=== PATIENT | female | born 1975 | race Caucasian/White ===

== ENCOUNTER → 2017-05-13 | Outpatient (CLI) | payer BC ==
--- NOTE | 2017-05-13 11:56 | MM ---
Reason for exam: screening (asymptomatic). Baseline mammogram. History: Family history of breast cancer in maternal grandmother at age 60, breast cancer in maternal aunt at age 40, and breast cancer in maternal aunt at age 50. Took hormonal contraceptives beginning at age 19. Physical Findings: Nurse did not find any significant physical abnormalities on exam. MG Screening Mammo w CAD Bilateral CC and MLO view(s) were taken. There are scattered fibroglandular densities. Nodular density lower right breast 6-7cm from nipple. These results were verbally communicated with the patient and result sheet given to the patient on 05/13/17. ASSESSMENT: Incomplete: need additional imaging evaluation, BI-RAD 0 RECOMMENDATION: Ultrasound of the right breast. [facility] will attempt to contact patient to return for ultrasound.
--- NOTE | 2017-05-13 11:57 | USB ---
Reason for exam: additional evaluation requested from abnormal screening. History: Family history of breast cancer in maternal grandmother at age 60, breast cancer in maternal aunt at age 40, and breast cancer in maternal aunt at age 50. Took hormonal contraceptives beginning at age 19. Physical Findings: Breast exam preformed at baseline screening. US Breast Workup Limited RT Right breast ultrasound demonstrates a 0.4 x 0.4 x 0.3cm oval, cystic lesion at 6 o'clock and a 0.8 x 0.5 x 0.8cm vascular lymph node at 7 o'clock. These results were verbally communicated with the patient and result sheet given to the patient on 05/13/17. ASSESSMENT: Benign, BI-RAD 2 RECOMMENDATION: Return to routine screening mammogram schedule for both breasts.
== END | disposition home or self-care (01) ==
LOC: RADMAMWWP 10:16
PROVIDERS: ATTEND Family Medicine
DX: Z12.31 Encounter for screening mammogram for malignant neoplasm of breast (principal); R92.8 Other abnormal and inconclusive findings on diagnostic imaging of breast; Z80.3 Family history of malignant neoplasm of breast
CPT/HCPCS: 77067

== ENCOUNTER → 2019-03-04 | Outpatient (CLI) | payer BC ==
--- NOTE | 2019-03-04 17:27 | XR ---
EXAMINATION TYPE: XR chest 2V DATE OF EXAM: 03/04/2019 COMPARISON: NONE HISTORY: Short of breath TECHNIQUE: 2 views FINDINGS: There is coarsening of the lung markings. There is no heart failure nor confluent pneumonic infiltrate. Costophrenic angles are clear. Bony thorax is intact. IMPRESSION: No heart failure or pulmonary consolidation. Minimal fibrotic changes.
== END | disposition home or self-care (01) ==
LOC: RADXRMAIN 16:46
PROVIDERS: ATTEND Nurse Practitioner Family
DX: J84.10 Pulmonary fibrosis, unspecified (principal); R06.00 Dyspnea, unspecified
CPT/HCPCS: 71046

== ENCOUNTER → 2019-04-01 | Outpatient (CLI) | payer BC ==
--- NOTE | 2019-04-01 17:39 | CT ---
EXAMINATION TYPE: CT chest w con DATE OF EXAM: 04/01/2019 COMPARISON: Chest x-ray 03/04/2019 HISTORY: abnormal cxr CT DLP: 677.8 mGycm, Automated exposure control for dose reduction was used. CONTRAST: Performed injected with 100 mL of Isovue 300. TECHNIQUE: Axial images were obtained at 5 mm thick sections. Reconstructed images are reviewed on [employer] computer in the coronal plane. FINDINGS: Portion of the thyroid visualized is normal. No suspicious lung nodules or focal infiltrates are present. No enlarged mediastinal or hilar adenopathy is evident. The ascending aorta diameter at the level o f the main pulmonary artery is 4.0 cm. The main pulmonary artery diameter at the bifurcation is 3.[address] sections are obtained through the upper abdomen. Abdomen is essentially unremarkable. IMPRESSIONS: 1. Aneurysmal dilatation of ascending thoracic aorta measuring 4.0 cm.
== END | disposition home or self-care (01) ==
LOC: RADCTMAIN 09:09
PROVIDERS: ATTEND Family Medicine
DX: I71.2 Thoracic aortic aneurysm, without rupture (principal)
CPT/HCPCS: 71260; Q9967

== ENCOUNTER → 2019-04-12 | Outpatient (CLI) | payer BC | END | disposition home or self-care (01) | LOC: CPPFTMAIN 13:52 | PROVIDERS: ATTEND Family Medicine | DX: J44.9 Chronic obstructive pulmonary disease, unspecified (principal) | CPT/HCPCS: 94060; 94726; 94729 ==

== ENCOUNTER → 2020-04-09 | Outpatient (CLI) | payer BC ==
--- NOTE | 2020-04-09 11:16 | CT ---
EXAMINATION TYPE: CT angio chest DATE OF EXAM: 04/09/2020 COMPARISON: 04/01/2019 HISTORY: Thoracic aortic aneurysm CT DLP: 1294.0 mGycm CONTRAST: CTA thoracic aorta with 3-D reconstruction is performed and with IV Contrast, patient injected with 1 00 mL of Isovue 370. Contrast CTA of the thoracic aorta was performed from the lung apex through the upper abdomen. 3D re construction imaging obtained at a separate workstation. CT Chest: THORACIC AORTA: The ascending thoracic aorta is stable at 4 cm AP dimension. Mild atheromatous change s seen. There is no evidence for dissection or periaortic collection. LUNGS: The lungs are clear and free of infiltrate or atelectasis. No pulmonary nodule or mass is det ected. No pleural effusion or CT evidence of interstitial lung disease. MEDIASTINUM: No evidence for mediastinal hematoma. The heart is not enlarged. No evidence for med iastinal mass or adenopathy. HILAR STRUCTURES: No evidence for mass. No hilar adenopathy is appreciated. OTHER: No significant abnormality. IMPRESSION- The ascending thoracic aorta is stable at 4 cm AP dimension.
== END | disposition home or self-care (01) ==
LOC: RADCTMAIN 08:11
PROVIDERS: ATTEND Thoracic Surgery (Cardiothoracic Vascular Surgery)
DX: I71.2 Thoracic aortic aneurysm, without rupture (principal)
CPT/HCPCS: 71275; Q9967

== ENCOUNTER → 2020-04-09 | Outpatient (CLI) | payer BC ==
--- NOTE | 2020-04-09 10:23 | ECHOF ---
Referral Reason:R01.1 Cardiac murmur, unspecified MEASUREMENTS -------- HEIGHT: 180.3 cm WEIGHT: 154.2 kg BP: RVIDd: 2.9 cm (< 3.3) IVSd: 1.2 cm (0.6 - 1.1) LVIDd: 5.7 cm (3.9 - 5.3) LVPWd: 1.2 cm (0.6 - 1.1) IVSs: 1.5 cm LVIDs: 2.9 cm LVPWs: 2.1 cm LAESV Index (A-L): 28.62 ml/m Ao Diam: 2.7 cm (2.0 - 3.7) AV Cusp: 1.8 cm (1.5 - 2.6) LA Diam: 3.8 cm (2.7 - 3.8) MV EXCURSION: 15.568 mm (> 18.000) MV EF SLOPE: 111 mm/s (70 - 150) EPSS: 0.2 cm MV E Alexys: 0.92 m/s MV DecT: 172 ms MV A Alexys: 0.61 m/s MV E/A Ratio: 1.51 RAP: 5.00 mmHg RVSP: 27.35 mmHg FINDINGS -------- Sinus rhythm. This was a technically adequate study. The left ventricular size is normal. There is mild concentric left ventricular hypertrophy. Overa ll left ventricular systolic function is normal with, an EF between 55 - 60 %. The diastolic fillin g pattern is normal for the age of the patient 10.61. The right ventricle is normal in size. Normal LA size by volume 22+/-6 ml/m2. The right atrial size is normal. IAS not well Visualized. The aortic valve is trileaflet, and appears structurally normal. No aortic stenosis or regurgitation. The mitral valve is normal. Mild mitral regurgitation is present. The tricuspid valve appears structurally normal. Mild tricuspid regurgitation present. Right vent ricular systolic pressure is normal at < 35 mmHg. There is no pulmonic regurgitation present. The aortic root size is normal. Normal inferior vena cava with normal inspiratory collapse consistent with estimated right atrial pre ssure of 5 mmHg. There is no pericardial effusion. CONCLUSIONS -------- 1. There is mild concentric left ventricular hypertrophy. 2. Overall left ventricular systolic function is normal with, an EF between 55 - 60 %. 3. The aortic valve is trileaflet, and appears structurally normal. No aortic stenosis or regurgitati on. 4. Mild mitral regurgitation is present. 5. Mild tricuspid regurgitation present. 6. There is no pericardial effusion. WEAVING TEACHER: Karlie Abdul RDCS
== END | disposition home or self-care (01) ==
LOC: RADECHMAIN 08:10
PROVIDERS: ATTEND Family Medicine
DX: R01.1 Cardiac murmur, unspecified (principal)
CPT/HCPCS: 93306

== ENCOUNTER → 2021-12-18 | Outpatient (CLI) | payer BC ==
--- NOTE | 2021-12-18 16:59 | P.SLEEP ---
History of Present Illness DATE: 12/18/2021 CONSULTATION/NEW PATIENT EVALUATION HISTORY OF PRESENT ILLNESS/SLEEP-WAKE EVALUATION: 46 year old lady had been evaluated in the sleep center for possible obstructive sleep apnea hypopnea syndrome. Patient has history of oxygen desaturation during the night documented by oximetry and tired during the day during exercise, she is on oxygen supplement 2 L/m 24 hours a day. SLEEP SCHEDULE: Usually sleep schedule on weekdays from 10 PM to 6 AM, during days off from 10-11 PM to 8 AM. FALLING ASLEEP: Usually no significant problems with the falling asleep, although patient has TV set and bedroom. DURING SLEEP: Patient snores and wakes up from sleep up to 4 times with 3 episodes of nocturia. Positive history of hypnogogical hallucinations, but no sleep paralysis, or cataplexy. Positive history of palpitation, sweating during the night and episodes of pounding headaches in the morning DURING THE DAY/WAKE STATE: Patient wakes up tired, sometimes with pounding headache, falling asleep during the day, has problems with memory, concentration, irritability. [place] Sleepiness Scale is in very high range of 17. Patient may take 1 nap around 4 PM. PAST MEDICAL HISTORY: Asthma, hypertension, depression, ALLERGY, acid reflux in the past, sinuses problems. PAST SURGICAL HISTORY: None. MEDICATIONS: Sertraline 100 mg once a day, losartan/hydrochlorothiazide 100 mg/12.5 mg once a day, Sondra, Flonase, Trilogy. SOCIAL HISTORY: Positive for smoking for about 25 years, quit 7 years ago, alcohol consumption occasional. FAMILY HISTORY: Heart problems, hyperlipidemia, cancer, diabetes mellitus. REVIEW OF SYSTEMS: Snoring, multiple awakenings from sleep, significant excessive daytime sleepiness. No fevers. No double vision. No recent chest pain. No shortness of breath. No abdominal pain. No bleeding episodes. No blood in urine. No seizure episodes. PHYSICAL EXAMINATION: GENERAL: A pleasant patient without any distress. VITAL SIGNS: BP 148/78 , HR 92 , RR 16 , weight 370.8 pounds, height 6 foot 0 inches, body mass index 50.1 . HEENT: PERRLA, EOMI. Evaluation of oropharynx showed tongue protrudes midline, wide pillars. NECK: Supple. No JVD. Thyroid is not palpable. 19-1/2 inches in circumference. LUNGS: Clear to percussion and to auscultation. Good air exchange. No wheezing or rhonchi. HEART: S1, S2 regular. No murmurs, gallops or rubs. ABDOMEN: Soft and nontender. Bowel sounds are present. No organomegaly appreciated. EXTREMITIES: No clubbing or cyanosis. CLIENT OPERATIONS MANAGER: Awake, alert, and oriented x3. Cranial nerves 2 to 7 intact. There is no fasciculation or atrophy noted. No focal deficits observed. ASSESSMENT: 1. Snoring, multiple awakenings from sleep, small oropharyngeal air space, extremely wide neck 19-1/2 inches in circumference, history of oxygen desaturation during the sleep confirmed by oximetry. Obstructive sleep apnea- hypopnea syndrome. 2. Sleepiness with way high [place] Sleepiness Scale of 17 dictate necessity to include narcolepsy and hypersomnia and differential diagnosis. 3 obesity body mass index 50.1. Patient increased to wait on 120 pounds for last 10 years. 4. Asthma. 5 hypertension. 6. Headaches pounding, sometimes starting in the morning after awakenings. 7. Depression. 8. ALLERGY. 9. Sinuses problems. 10. History of smoking for 25 pack years. Quit 7 years ago. PLAN: 1. Polysomnography for evaluation of patient's breathing during sleep. 2. CPAP/BiPAP titration if sleep study confirms obstructive sleep apnea-hy popnea syndrome. 3. Preferable position during sleep on the side. 4. No driving if patient feels any sleepiness. Patient is aware of civil and criminal liability for unsafe driving. 5. Sleep hygiene with regular sleep time for at least 7.5-8 hours. 6. Watching and losing weight. Thank you very much for referring this patient for consultation. Sincerely, Dipak Lamb MD, PhD, FAASM. Diplomat of [place] [employer], Sleep Medicine Board by [place] [employer] [place] [employer] Officer of [facility] [place] Medications and Allergies Allergies Allergy/AdvReac Type Severity Reaction Status Date / Time No Known Allergies Allergy Verified 05/13/17 10:53 Sleep Note - Sleep Note Sleep Note: Temperature: Pulse Rate: Respiratory Rate: Blood Pressure: SpO2: Height: Weight: BMI: Neck Circumference:
== END ==
LOC: SLEEP 15:47
PROVIDERS: ATTEND Internal Medicine
DX: G47.33 Obstructive sleep apnea (adult) (pediatric) (principal); E66.9 Obesity, unspecified; Z68.43 Body mass index [BMI] 50.0-59.9, adult; J45.909 Unspecified asthma, uncomplicated; I10 Essential (primary) hypertension; R51.9 Headache, unspecified; F32.A Depression, unspecified; Z87.891 Personal history of nicotine dependence; J01.90 Acute sinusitis, unspecified
CPT/HCPCS: 99211